=== PATIENT | female | born 1975 | race Caucasian/White ===

== ENCOUNTER 2020-06-15 00:39 | Emergency (ER) | payer OTHER, MEDICAID, SELFPAY ==
[2020-06-15 00:40] VITALS: BP 157/80; PULSE 96; RESP 20; TEMP 36.8; O2SAT 99; BMI 36.6
--- NOTE | 2020-06-15 00:57 | ED_ITS ---
HPI - Headache General Chief Complaint: Headache Stated Complaint: migraine 3 days Time Seen by Provider: 06/15/20 00:42 Source: patient Mode of arrival: Ambulatory Limitations: no limitations History of Present Illness HPI Narrative: Patient is a 44-year-old female with a history of migraine headaches here for evaluation of 1 of her typical migraines. States the symptoms started 3 days ago. She describes it is sharp pain on the backside of the right side of her head. Has photophobia. No neck pain. Does have nausea vomiting. No fevers. Again she stated this feels just like 1 of her prior headaches. Was not a sudden onset. She has taken her home migraine medications without any improvement. She has never been to this emergency department in the past. She states that her normal emergency department migraine cocktail is delighted, Zofran, fluids, Benadryl, magnesium. Related Data Allergies Allergy/AdvReac Type Severity Reaction Status Date / Time ketorolac [From Toradol] Allergy Severe Anaphylaxis Verified 06/15/20 00:52 sumatriptan [From Imitrex] Allergy Severe Anaphylaxis Verified 06/15/20 00:53 acetaminophen Allergy Verified 06/15/20 00:55 [From Darvocet-N] latex Allergy Verified 06/15/20 00:55 meperidine [From Demerol] Allergy Verified 06/15/20 00:54 Penicillins Allergy Verified 06/15/20 00:54 propoxyphene Allergy Verified 06/15/20 00:55 [From Darvocet-N] Tricyclic Compounds Allergy Verified 06/15/20 00:54 vancomycin Allergy Verified 06/15/20 00:54 adhesive tape AdvReac Verified 06/15/20 01:09 haloperidol [From Haldol] AdvReac Verified 06/15/20 00:55 Review of Systems Constitutional Constitutional: Denies fever(s) and Reports headache(s) Eyes Eyes: Denies change in vision and Reports photophobia ENT Ears, Nose, Mouth, and Throat: Reports headache(s), Denies neck pain, Denies sinus pain, Denies sinus pressure and Denies sore throat Cardiovascular Cardiovascular: Denies chest pain and Denies dyspnea Respiratory Respiratory: Denies dyspnea Gastrointestinal Gastrointestinal: Denies abdominal pain, Reports nausea and Denies vomiting Musculoskeletal Musculoskeletal: Denies arthralgias, Denies myalgias and Denies neck pain Integumentary/Breasts Skin/Breast: Denies lesions and Denies rash Neurologic Neurologic: Denies behavioral changes and Reports headache(s) Psychiatric Psychiatric: Denies behavioral changes Hematologic/Lymphatic Hematologic/Lymphatic: Denies easy bleeding and Denies easy bruising Patient History Medical History Chronic pain (Acute) Migraine headache (Acute) tobacco type: vaping alcohol intake frequency: holidays/special occasions only Substance Use Type: does not use Exam Initial Vital Signs Initial Vital Signs: Vital Signs Temperature 98.3 F 06/15/20 00:40 Pulse Rate 96 H 06/15/20 00:40 Respiratory Rate 20 06/15/20 00:40 Blood Pressure 157/80 H 06/15/20 00:40 Pulse Oximetry 99 06/15/20 00:40 Const General: cooperative and comfortable Limitations: mental status not altered HENMT Head: normal to inspection and normocephalic Neck Neck: No tender Resp Effort & Inspection: normal respiratory effort Auscultation: clear to auscultation bilaterally Cardio Rate: regular rate Rhythm: regular rhythm Skin Lesions: no lesions Rashes: no rashes Neuro General: patient alert and patient awake Cognition: normal cognition Speech: speech normal Extrem General: normal to inspection and capillary refill normal Psych Appearance: grossly normal and well kempt Scores GCS [place] coma scale eye opening: Spontaneous [place] coma scale verbal response: Orientated Eduardo coma scale motor response: Obey commands [place] coma scale total score: 15 Course Orders Ordered: Discontinued Medications Diphenhydramine HCl (Benadryl) 25 mg IV NOW ONE Stop: 06/15/20 00:43 Last Admin: 06/15/20 00:58 Dose: 25 mg Documented by: CLYDE Hydromorphone HCl (Dilaudid) 1 mg IV NOW ONE Stop: 06/15/20 00:58 Last Admin: 06/15/20 01:07 Dose: 1 mg Documented by: CLYDE Sodium Chloride (Normal Saline 0.9%) 1,000 mls @ 1,000 mls/hr IV BOLUS ONE Stop: 06/15/20 01:41 Last Infusion: 06/15/20 03:12 Dose: 0 mls/hr Documented by: Admin: 06/15/20 00:58 Dose: 1,000 mls/hr Documented by: CLYDE Magnesium Sulfate 1 gm/ (Dextrose) 102 mls @ 102 mls/hr IV NOW ONE Stop: 06/15/20 00:46 Last Infusion: 06/15/20 02:30 Dose: 0 mls/hr Documented by: Admin: 06/15/20 01:23 Dose: 102 mls/hr Documented by: CLYDE Metoclopramide HCl (Reglan) 10 mg IV NOW ONE Stop: 06/15/20 00:43 Ondansetron HCl (Zofran) 4 mg IV NOW ONE Stop: 06/15/20 00:46 Last Admin: 06/15/20 00:58 Dose: 4 mg Documented by: CLYDE Vital Signs Vital signs: Vital Signs - 8 hr 06/15/20 00:40 06/15/20 03:10 Temperature 98.3 F Pulse Rate 96 H 87 Respiratory Rate 20 16 Blood Pressure 157/80 H 121/77 Pulse Oximetry 99 96 MDM - Headache MDM Narrative Medical decision making narrative: Patient is here with 1 of her typical migraine headaches. History and physical is not consistent with the subarachnoid hemorrhage. Will hold on head CT. She was given what she describes as her ?typical migraine ?cocktail. She states that her headache improved from a 10/10 to a 7/10. She feels that this is most likely is good as is going to get an like to be discharged home. Will hold on further workup for now. Patient was given return precautions and follow-up instructions. She expressed understanding and agreement. Discharge Plan Departure Patient Disposition: Home Clinical Impression: Migraine Discharge Date/Time: 06/15/20 03:27 Instructions: DI for Migraine Activity Restrictions/Additional Instructions: Recommend that you continue with all of your medications as directed. Also recommend that you contact your primary provider for follow-up. Return to the emergency department for any new or worsening symptoms
[2020-06-15] MEDS: diphenhydrAMINE 50 MG/ML VIAL 25 MG IV (00:58)
[2020-06-15] MEDS: SODIUM CHLORIDE 0.9% 1,000 ML 1000 ML IV (00:58)
[2020-06-15] MEDS: ONDANSETRON 4 MG/2 ML INJ IV (00:58)
[2020-06-15] MEDS: HYDROMORPHONE 1 MG INJ IV (01:07)
[2020-06-15] MEDS: MAGNESIUM SULFATE 1 GM in DEXTROSE 5 % IN WATER 100 ML 102 ML IV (01:23)
[2020-06-15 03:10] VITALS: BP 121/77; PULSE 87; RESP 16; O2SAT 96
== END 2020-06-15 03:27 | disposition home or self-care (01) ==
PROVIDERS: Emergency Provider Emergency Medicine
DX: G43.909 Migraine, unspecified, not intractable, without status migrainosus (principal); R11.2 Nausea with vomiting, unspecified
CPT/HCPCS: 36415; 96361; 96374; 96375; 99284; J1170; J1200; J2405; J3475

== ENCOUNTER → 2020-11-27 10:39 | Outpatient (CLI) | payer OTHER, MEDICAID, SELFPAY ==
[2020-11-27 12:04] LABS: Influenza A - CEPHEID Flu A NEGATIVE (NEGATIVE); Influenza B - CEPHEID Flu B NEGATIVE (NEGATIVE)
[2020-11-27 12:34] LABS: COVID19 -Nasal RAPID Negative (Negative)
== END ==
PROVIDERS: Visit Provider Physician Assistant
DX: Z20.822 Contact with and (suspected) exposure to COVID-19 (principal); J02.9 Acute pharyngitis, unspecified
CPT/HCPCS: 87070; 87502; 87635

== ENCOUNTER 2024-04-19 17:11 | Emergency (ER) | payer OTHER, MEDICAID, SELFPAY ==
[2024-04-19] VITALS (12 sets, daily range): BP systolic 110–140; BP diastolic 73–85; PULSE 99–125; RESP 18–22; TEMP 36.8–37.1; O2SAT 94–99; BMI 34.9
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
[2024-04-19 18:45] LABS: Appearance Urine UA CLEAR; Bilirubin Urine UA NEGATIVE (NEGATIVE); Color Urine UA YELLOW; Glucose Urine UA 3+ g/dL (Negative); Ketones Urine UA TRACE (NEGATIVE); Leukocyte Esterase Urine UA NEGATIVE (NEGATIVE); Nitrite Urine UA NEGATIVE (Negative); Occult Blood Urine UA NEGATIVE (Negative); Protein Urine UA NEGATIVE (Negative); Specific Gravity Urine UA 1.025 (1.000-1.035); Urobilinogen Urine UA 0.2 E.U./dL (0.2)
[2024-04-19 18:56] LABS: pH Urine UA 5.5 (4.5-8.0)
--- NOTE | 2024-04-19 18:59 | PC.NURSE ---
Pt arrives POV, no c-spine precautions. Physician aware. CTs ordered.
[2024-04-19 19:10] LABS: Bacteria Urine Few (2-10); Culture Indicated Urine Cult Not Indicated; RBC Urine None Seen (0-5/HPF); Squamous Epithelial Cell Urine 1-5 /HPF (0-5/HPF); Urine Volume 10mL (spun); WBC Urine 0-1/HPF (0-5/HPF)
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
[2024-04-19] MEDS: PROCHLORPERAZINE 10 MG/2 ML VIAL 5 MG IV (21:27)
[2024-04-19] MEDS: diphenhydrAMINE 50 MG/ML VIAL IV (21:27)
== END 2024-04-19 22:34 | disposition home or self-care (01) ==
PROVIDERS: Emergency Provider Emergency Medicine
DX: S46.911A Strain of unspecified muscle, fascia and tendon at shoulder and upper arm level, right arm, initial encounter (principal); S46.912A Strain of unspecified muscle, fascia and tendon at shoulder and upper arm level, left arm, initial encounter; S39.012A Strain of muscle, fascia and tendon of lower back, initial encounter; R51.9 Headache, unspecified; M54.2 Cervicalgia; V89.2XXA Person injured in unspecified motor-vehicle accident, traffic, initial encounter
CPT/HCPCS: 70450; 72125; 72131; 73030; 81001; 96374; 96375; 99283; 99284; J0780; J1200